=== PATIENT | female | born 1995 | race Two or more races ===

== ENCOUNTER 2023-03-04 13:19 | Observation (INO) | payer MEDICAID ==
[~2023-03-04] VITALS: Ht 172.7 cm; Wt 83.9 kg
[2023-03-04 14:26] LABS: Fern Testing Negative
== END 2023-03-04 14:52 | disposition home or self-care (01) ==
LOC: LDRP 13:19 → UNDOADMOB 13:19 → LDRP 13:37
PROVIDERS: ADMIT Obstetrics & Gynecology; ATTEND Obstetrics & Gynecology
DX: O42.913 Preterm premature rupture of membranes, unspecified as to length of time between rupture and onset of labor, third trimester (principal); Z3A.29 29 weeks gestation of pregnancy
CPT/HCPCS: 59025; 81002; 84112; G0378; Q0114

== ENCOUNTER 2023-03-22 19:36 | Emergency (ER) | payer MEDICAID ==
[~2023-03-22] VITALS: Ht 172.7 cm; Wt 84.9 kg
[2023-03-22 20:00] VITALS: PULSE 104; RESP 18; TEMP 98.3; O2SAT 96
[2023-03-22 20:06] LABS: Basophils # (auto) 0 10 ^3/uL (0-0.2); Hemoglobin 10.6 g/dL (12.2-16.2); Lymphocytes # (auto) 1.4 10 ^3/uL (0.4-5.4); Mean Corpuscular Hgb Conc. 32.1 g/dL (32.0-36.0)
[2023-03-22 20:08] LABS: Basophils % (auto) 0.3 % (0.0-2.0); Eosinophils # (auto) 0 10 ^3/uL (0-0.8); Eosinophils % (auto) 0.4 % (0.0-7.0); Hematocrit 33.1 % (36.0-46.0); Lymphocytes % (auto) 11.9 % (10.0-50.0); Mean Corpuscular Hemoglobin 22.5 pg (28.0-32.0); Monocytes # (auto) 0.9 10 ^3/uL (0-1.3); Monocytes % (auto) 7.9 % (0.0-12.0); Neutrophils # (auto) 9.3 10 ^3/uL (1.6-8.6); Neutrophils % (auto) 79.5 % (37.0-80.0); Red Blood Cells 4.73 10^6/uL (4.0-5.20); Red Cell Distribution Width 15.5 % (11.8-14.3); White Blood Cell 11.7 10^3/uL (4.4-10.8)
[2023-03-22] MEDS ORDERED: ONDANSETRON HCL 4 MG/2 ML VIAL IV ONE (21:45)
[2023-03-22] MEDS ORDERED: MORPHINE SULFATE 4 MG/ML SYR/VIAL IV ONE (21:45)
[2023-03-22] MEDS ORDERED: diphenhdrAMINE HCL 50 MG/1 ML VL IV ONE (21:45)
[2023-03-22 23:12] LABS: Urine Bacteria FEW /hpf (None Seen); Urine Blood Negative /uL (Negative); Urine Clarity Clear (Clear); Urine Color Colorless (Yellow); Urine Mucus MODERATE (None Seen); Urine Protein, UAD Negative (Negative); Urine Specific Gravity 1.004 (1.001-1.035); Urine Urobilinogen Normal (Negative); Urine WBC 4 /hpf (0 - 5); Urine pH 6.5 (5.0-8.0)
[2023-03-23] MEDS ORDERED: LACTATED RINGER'S 2,000 ML IV ONE (00:45)
[2023-03-23 02:00] VITALS: BP 123/77; PULSE 100; RESP 18; O2SAT 98
[2023-03-23 02:08] LABS: Alanine Aminotransferase 11 U/L (7-40); Alkaline Phosphatase 136 U/L (46-116); Anion Gap 12 (5-15); Aspartate Aminotransferase 14 U/L (13-40); Bilirubin, Total 0.6 mg/dL (0.2-1.0); Calcium 8.6 mg/dL (8.7-10.4); Carbon Dioxide 17 mmol/L (20-30); Chloride 104 mmol/L (98-107); Glucose 97 mg/dL (74-106); Potassium 3.6 mmol/L (3.5-5.1); Sodium 133 mmol/L (136-145)
[2023-03-23 02:09] LABS: Total Protein 7.2 g/dL (5.7-8.2)
[2023-03-23 02:16] LABS: BUN/Creatinine Ratio 10.2 (10.0-20.0); Blood Urea Nitrogen < 5 mg/dL (9-23)
[2023-03-23] MEDS ORDERED: AUG875T PO (02:57)
[2023-03-23] MEDS ORDERED: AZIT-43 PO (02:57)
[2023-03-23] MEDS ORDERED: cefTRIAXone SOD 1,000 MG VL IM ONE (03:00)
== END 2023-03-23 03:12 | disposition home or self-care (01) ==
LOC: ER 19:36
DX: O99.513 Diseases of the respiratory system complicating pregnancy, third trimester (principal); O26.893 Other specified pregnancy related conditions, third trimester; R07.89 Other chest pain; R42 Dizziness and giddiness; R53.1 Weakness; D72.829 Elevated white blood cell count, unspecified; Z3A.32 32 weeks gestation of pregnancy
CPT/HCPCS: 36415; 71045; 76815; 80053; 81001; 84484; 85025; 85379; 93005; 96361; 96372; 96374; 96375; 99285; J0696; J1200; J2270; J2405

== ENCOUNTER 2023-05-12 07:52 | Inpatient (IN) | payer MEDICAID ==
[~2023-05-12] VITALS: Ht 172.7 cm; Wt 93.0 kg
[2023-05-12] VITALS (16 sets, daily range): BP systolic 129–159; BP diastolic 70–98; PULSE 80–112; RESP 15–18; TEMP 97.6–98.9; O2SAT 98
[~2023-05-12 07:52] MED LIST: AUG875T PO; AZIT-43 PO
[2023-05-12] MEDS ORDERED: DERMOPLAST 60ML BOTTLE TOP PRN (08:45)
[2023-05-12] MEDS ORDERED: WITCH HAZEL-GLYCERIN PAD TOP PRN (08:45)
[2023-05-12] MEDS ORDERED: PROMETHAZINE HCL 25 MG/ML 1ML IM PRN (08:45)
[2023-05-12] MEDS ORDERED: MAGNESIUM SULFATE 100 ML IV ONE (08:45)
[2023-05-12] MEDS ORDERED: PHISODERM TOP SOLN 240ML BTL TOP PRN (08:45)
[2023-05-12] MEDS ORDERED: LORazepam 2MG/ML-1ML VIAL IV ONE (08:45)
[2023-05-12] MEDS ORDERED: LIDOCAINE 2%HCL (LOCAL ANESTH.) INJ 20ML MDV IJ PRN (08:45)
[2023-05-12] MEDS ORDERED: miSOPROStol 50 MCG per PRE-CUT 1/2 TAB PO PRN (08:45)
[2023-05-12] MEDS ORDERED: hydrALAZINE HCL 20 MG/ML VL IV PRN (08:45)
[2023-05-12] MEDS ORDERED: LACTATED RINGER'S 1,000 ML IV SCH (08:45)
[2023-05-12 09:19] LABS: Eosinophils # (auto) 0.1 10 ^3/uL (0-0.8); Mean Corpuscular Volume 74.9 fL (80.0-100.0); Monocytes # (auto) 0.7 10 ^3/uL (0-1.3); Nucleated Red Blood Cells % 0.1 %; White Blood Cell 11.4 10^3/uL (4.4-10.8)
[2023-05-12 09:20] LABS: Basophils # (auto) 0 10 ^3/uL (0-0.2); Basophils % (auto) 0.4 % (0.0-2.0); Eosinophils % (auto) 0.7 % (0.0-7.0); Hematocrit 38.3 % (36.0-46.0); Hemoglobin 12.5 g/dL (12.2-16.2); Lymphocytes # (auto) 2.1 10 ^3/uL (0.4-5.4); Lymphocytes % (auto) 18.4 % (10.0-50.0); Mean Corpuscular Hemoglobin 24.4 pg (28.0-32.0); Mean Corpuscular Hgb Conc. 32.5 g/dL (32.0-36.0); Monocytes % (auto) 5.8 % (0.0-12.0); Neutrophils # (auto) 8.5 10 ^3/uL (1.6-8.6); Neutrophils % (auto) 74.7 % (37.0-80.0); Red Blood Cells 5.11 10^6/uL (4.0-5.20)
[2023-05-12 09:38] LABS: Alanine Aminotransferase 16 U/L (7-40); Alkaline Phosphatase 147 U/L (46-116); Anion Gap 7 (5-15); Calcium 9.1 mg/dL (8.5-10.1); Carbon Dioxide 24 mmol/L (20-30); Chloride 106 mmol/L (98-107); Glucose 85 mg/dL (74-106); Potassium 3.5 mmol/L (3.5-5.1); Sodium 137 mmol/L (136-145)
[2023-05-12 09:39] LABS: Albumin 3.9 g/dL (3.2-4.8); Aspartate Aminotransferase 23 U/L (13-40); Bilirubin, Total 0.4 mg/dL (0.2-1.0); Total Protein 6.6 g/dL (5.7-8.2)
[2023-05-12 09:40] LABS: BUN/Creatinine Ratio 9.3 (10.0-20.0); Blood Urea Nitrogen < 5 mg/dL (9-23)
[2023-05-12] MEDS: MAGNESIUM SULFATE 40MG/ML 1,000 ML IV SCH (09:51)
[2023-05-12] MEDS ORDERED: LACT. RINGERS/OXYTOCIN 20UNITS 0 ML IV ONE (10:11)
[2023-05-12 10:22] LABS: Urine Bacteria NONE SEEN /hpf (None Seen); Urine Blood Negative /uL (Negative); Urine Clarity Clear (Clear); Urine Protein, UAD Negative (Negative); Urine Specific Gravity 1.004 (1.001-1.035); Urine Urobilinogen Normal (Negative); Urine WBC 2 /hpf (0 - 5)
[2023-05-12 10:25] LABS: Urine Color Straw (Yellow)
[2023-05-12 10:45] LABS: INR 0.93 (0.9-1.15); Partial Thromboplastin Time 28.6 SEC (24.5-34.5); Prothrombin Time 9.8 sec (9.3-11.8)
[2023-05-12] MEDS ORDERED: LACT. RINGERS/OXYTOCIN 20UNITS 1,000 ML IV ONE (10:55)
[2023-05-12 11:23] LABS: Protein, Urine 21.6 mg/dL (0.0-11.9)
[2023-05-12 11:25] LABS: Creatinine, Urine 13.95 mg/dL (30.0-125.0); Urine Protein/Creatinine Ratio 1.55
[2023-05-12 11:26] LABS: Amphetamine Screen, Urine Neg (NEGATIVE)
[2023-05-12 11:27] LABS: Barbiturate Scree,Urine Neg (NEGATIVE); Benzodiazephine Screen, Urine Neg (NEGATIVE); Cocaine Screen, Urine Neg (NEGATIVE)
[2023-05-12 11:28] LABS: Cannabinoid Screen, Urine Neg (NEGATIVE); Opiate Scree,Urine Neg (NEGATIVE); Phencyclidine Screen, Urine Neg (NEGATIVE)
[2023-05-12] MEDS ORDERED: LACT. RINGERS/OXYTOCIN 20UNITS 500 ML IV ONE ×2 (11:30→12:00)
[2023-05-12] MEDS ORDERED: ONDANSETRON ODT 4 MG TAB PO PRN (11:30)
[2023-05-12] MEDS ORDERED: ACETAMINOPHEN 325 MG TAB PO PRN (11:30)
[2023-05-12 12:11] LABS: Uric Acid 5.3 mg/dL (3.1-7.8)
[2023-05-12 12:12] LABS: Magnesium 1.6 mg/dL (1.6-2.6)
[2023-05-12] MEDS: IBUPROFEN 600 MG TAB PO PRN ×2 (12:26→19:05)
[2023-05-12] MEDS ORDERED: LABETALOL HCL 200 MG TAB PO PRN (17:45)
[2023-05-12] MEDS ORDERED: ONDANSETRON HCL 4 MG/2 ML VIAL IV PRN (20:00)
[2023-05-13] VITALS (24 sets, daily range): BP systolic 125–169; BP diastolic 71–97; PULSE 81–100; RESP 15–18; TEMP 98.5–98.8; O2SAT 95–100
[2023-05-13] MEDS ORDERED: LABETALOL HCL 200 MG TAB PO PRN (00:45)
[2023-05-13] MEDS: IBUPROFEN 600 MG TAB PO PRN ×2 (03:02→16:36)
[2023-05-13] MEDS: MAGNESIUM SULFATE 40MG/ML 1,000 ML IV SCH (05:16)
[2023-05-13 07:06] LABS: RPR Non Reactive (Non Reactive)
[2023-05-13 07:29] LABS: Eosinophils # (auto) 0.1 10 ^3/uL (0-0.8); Eosinophils % (auto) 0.6 % (0.0-7.0); Hemoglobin 12.2 g/dL (12.2-16.2)
[2023-05-13 07:32] LABS: Basophils # (auto) 0 10 ^3/uL (0-0.2); Basophils % (auto) 0.3 % (0.0-2.0); Hematocrit 38.2 % (36.0-46.0); Lymphocytes % (auto) 14.2 % (10.0-50.0); Mean Corpuscular Hemoglobin 24.2 pg (28.0-32.0); Mean Corpuscular Volume 75.5 fL (80.0-100.0); Monocytes # (auto) 0.7 10 ^3/uL (0-1.3); Monocytes % (auto) 5.2 % (0.0-12.0); Neutrophils # (auto) 11.3 10 ^3/uL (1.6-8.6); Neutrophils % (auto) 79.7 % (37.0-80.0); Red Blood Cells 5.06 10^6/uL (4.0-5.20); Red Cell Distribution Width 24.5 % (11.8-14.3); White Blood Cell 14.2 10^3/uL (4.4-10.8)
[2023-05-13 08:56] LABS: Alanine Aminotransferase 15 U/L (7-40); Albumin 3.6 g/dL (3.2-4.8); Alkaline Phosphatase 132 U/L (46-116); Anion Gap 9 (5-15); Aspartate Aminotransferase 33 U/L (13-40); Calcium 7.2 mg/dL (8.5-10.1); Carbon Dioxide 23 mmol/L (20-30); Chloride 106 mmol/L (98-107); Glucose 99 mg/dL (74-106); Potassium 3.6 mmol/L (3.5-5.1); Sodium 138 mmol/L (136-145)
[2023-05-13 08:57] LABS: Bilirubin, Total 0.4 mg/dL (0.2-1.0); Total Protein 6.2 g/dL (5.7-8.2)
[2023-05-13 08:59] LABS: BUN/Creatinine Ratio 8.5 (10.0-20.0); Blood Urea Nitrogen < 5 mg/dL (9-23)
[2023-05-13 09:20] LABS: Uric Acid 5.1 mg/dL (3.1-7.8)
[2023-05-13] MEDS: LABETALOL HCL 200 MG TAB PO SCH ×2 (10:43→21:47)
[2023-05-13] MEDS ORDERED: PREN-96 PO (19:32)
[2023-05-14 03:00] VITALS: BP 149/75; PULSE 85; RESP 18; TEMP 98.1; O2SAT 97
[2023-05-14 03:58] VITALS: BP 149/75; PULSE 94; RESP 18; TEMP 98.1; O2SAT 97
[2023-05-14 07:00] VITALS: BP 127/82; PULSE 80; RESP 16; TEMP 98.2; O2SAT 99
[2023-05-14] MEDS ORDERED: LABE100T4 PO ×2 (07:57→08:09)
[2023-05-14] MEDS ORDERED: IBU600T PO ×2 (08:01→08:09)
[2023-05-14] MEDS: LABETALOL HCL 200 MG TAB PO SCH (10:06)
[2023-05-14 11:00] VITALS: BP 130/74; PULSE 72; RESP 16; TEMP 98; O2SAT 100
[2023-05-14 19:06] LABS: Treponema pallidum Ab (FTA-Ab) Non Reactive (Non Reactive)
== END 2023-05-14 11:20 | disposition home or self-care (01) | DRG 560 ==
LOC: INTOOBSV 07:52 → OBSVTOIN 07:52 → LDRP 07:52 → UNDOADMOB 07:52 → INTOOBSV 08:20 → UNDOADMOB 08:20 → LDRP 08:20 → OBSVTOIN 08:20 → LDRP 10:32
PROVIDERS: ADMIT Obstetrics & Gynecology; ATTEND Obstetrics & Gynecology
PROC: 10E0XZZ Delivery of Products of Conception, External Approach (ICD-10-PCS; principal; 2023-05-12)
PROC: 0HQ9XZZ Repair Perineum Skin, External Approach (ICD-10-PCS; 2023-05-12)
DX: O14.94 Unspecified pre-eclampsia, complicating childbirth (principal); Z37.0 Single live birth; O70.0 First degree perineal laceration during delivery; Z3A.39 39 weeks gestation of pregnancy
CPT/HCPCS: 36415; 59025; 59409; 80053; 80307; 81001; 81002; 82570; 83735; 84156; 84550; 85025; 85610; 85730; 86592; 86850; 86900; 86901; 94760; 94762; 96360; 96361; 96365; 96366; G0378; J2590